=== PATIENT | male | born 1980 | race Caucasian/White ===

== ENCOUNTER 2023-11-29 08:16 | Outpatient (CLI) | payer OTHER ==
[~2023-11-29 08:16] MED LIST: FOLIC ACID1 MG PO; PEPCID AC20 MG PO; PERCOCET 5-3251 EACH PO
== END 2023-11-29 08:17 | disposition home or self-care (01) ==
LOC: NUCLEAR 08:16
PROVIDERS: ATTEND Internal Medicine Hematology & Oncology
DX: C83.33 Diffuse large B-cell lymphoma, intra-abdominal lymph nodes (principal)

== ENCOUNTER 2024-10-09 09:19 | Outpatient (CLI) | payer OTHER | END 2024-10-09 09:25 | disposition home or self-care (01) | LOC: TOM 09:19 | PROVIDERS: ATTEND Internal Medicine Hematology & Oncology | DX: C83.33 Diffuse large B-cell lymphoma, intra-abdominal lymph nodes (principal) ==